=== PATIENT | male | born 1950 | race Caucasian/White ===

== ENCOUNTER 2023-04-26 18:23 | Emergency (ER) | payer MEDICARE ==
[~2023-04-26] VITALS: Ht 190.5 cm; Wt 81.6 kg
[2023-04-26 18:32] VITALS: BP_SYST 135; PULSE 121; RESP 22; TEMP 97; O2SAT 94
[2023-04-26] MEDS ORDERED: methylPREDNISolone SOD SUCC/PF 62.5 MG/ML VIAL IVP ONE (18:45)
[2023-04-26] MEDS ORDERED: IPRATROPIUM/ALBUTEROL SULFATE 3 ML AMPUL.NEB (DUONEB) INH ONE (18:45)
[2023-04-26] MEDS ORDERED: METOPROLOL TARTRATE 5 MG/5 ML VIAL IVP ONE (19:15)
[2023-04-26] MEDS ORDERED: METOPROLOL TARTRATE 25 MG TABLET PO ONE (19:15)
[2023-04-26 19:22] LABS: BASOPHILS # (AUTO) 0.1 K/uL (0.0-0.2); BASOPHILS % (AUTO) 0.6 % (0.0-2.0); EOSINOPHILS % (AUTO) 0.1 % (0.0-4.0); HEMATOCRIT 41.3 % (36-54); HEMOGLOBIN 13.7 g/dL (14.0-18.0); LYMPHOCYTES # (AUTO) 0.3 K/uL (1.0-5.5); LYMPHOCYTES % (AUTO) 2.9 % (20.5-51.5); MEAN CORPUSCULAR HEMOGLOBIN 32 pg (27-31); MEAN CORPUSCULAR HGB CONC 33 % (32-36); MEAN CORPUSCULAR VOLUME 96 fL (79.0-98.0); MONOCYTES # (AUTO) 0.7 K/uL (0.0-1.0); MONOCYTES % (AUTO) 5.8 % (1.7-9.3); NEUTROPHILS # (AUTO) 10.9 K/uL (1.8-7.7); NEUTROPHILS % (AUTO) 90.6 % (40.0-70.0); PLATELET COUNT (AUTO) 123 K/uL (130-430); RED BLOOD CELL COUNT(AUTO) 4.32 MIL/uL (4.2-6.2); RED CELL DISTRIBUTION WIDTH 13.2 % (9.0-15.0); WHITE BLOOD COUNT (AUTO) 12.1 K/uL (4.8-10.8)
[2023-04-26 19:36] LABS: ANION GAP 10 (5-15); CALCIUM 7.7 mg/dL (8.4-11.0); CARBON DIOXIDE 29 mmol/L (23-29); CHLORIDE 101 mmol/L (98-107); CREATININE 0.73 mg/dL (0.55-1.30); GLUCOSE 119 mg/dL (74-106); POTASSIUM 3.7 mmol/L (3.5-5.1); SODIUM SERUM 140 mmol/L (136-145); UREA NITROGEN, BLOOD 15 mg/dL (8-21)
[2023-04-26 19:43] LABS: ALANINE AMINOTRANSFERASE 25 U/L (12-78); ALBUMIN 3.9 g/dL (3.4-4.8); ASPARTATE AMINOTRANSFERASE 18 U/L (10-37); TOTAL BILIRUBIN 1.6 mg/dL (0.0-1.0); TOTAL PROTEIN, SERUM 6.8 g/dL (6.4-8.3)
[2023-04-26 19:54] LABS: INR 2.2 (0.80-1.20); PROTHROMBIN TIME 22.1 SECS (9.5-12.5)
[2023-04-26 19:56] LABS: BILIRUBIN,URINE NEGATIVE (NEGATIVE); BLOOD, URINE 1+ (NEGATIVE); COLOR,URINE YELLOW (YELLOW); GLUCOSE,URINE NEGATIVE (NEGATIVE); KETONES,URINE 2+ (NEGATIVE); LEUKOCYTE ESTERASE ,URINE NEGATIVE (NEGATIVE); NITRITE, URINE NEGATIVE (NEGATIVE); PH,URINE 5.5 (5.0-8.0); PROTEIN URINE 1+ (NEGATIVE); UROBILINOGEN,URINE 0.2 (0.2-1.0)
[2023-04-26 19:58] LABS: CLARITY/URINE SLIGHTLY CLOUDY (CLEAR)
[2023-04-26 20:09] LABS: BARBITURATE, URINE NEGATIVE (NEG <=200); BENZODIAZEPINE, URINE NEGATIVE (NEG <=150); CANNABINOID, URINE NEGATIVE (NEG <=50); COCAINE, URINE NEGATIVE (NEG <=150); METHAMPHETAMINES SCREEN,URINE NEGATIVE (NEG <=500); OPIATE, URINE NEGATIVE (NEG <=100); PHENCYCLIDINE SCREEN,URINE NEGATIVE (NEG <=25); URINE AMPHETAMINE NEGATIVE (NEG <=500); URINE METHADONE NEGATIVE (NEG <=200); URINE OXYCODONE SCREEN NEGATIVE (NEG <=100); URINE PROPOXYPHENE SCREEN NEGATIVE (NEG <=300)
[2023-04-26 20:10] LABS: UR TRICYCLIC ANTIDEPRESSANTS NEGATIVE (NEG <=300)
[2023-04-26] MEDS ORDERED: cefTRIAXone 1 GM IVPB PREMIX 50 ML IV ONE (20:15)
[2023-04-26 20:25] LABS: BACTERIA,URINE FEW /HPF (None Seen); WBC,URINE 0-3 /HPF (0-3)
[2023-04-26 20:36] LABS: ABG O2 SAT% ESTIMATE 92.5 % (94.0-100.0); BLOOD GAS HCO3 23.4 mmol/L (21.0-27.0); BLOOD GAS PCO2 34.5 mmHg (32.0-45.0); BLOOD GAS PH 7.449 (7.350-7.450); BLOOD GAS PO2 60.8 mmHg (75.0-100.0)
[2023-04-26] MEDS ORDERED: ALBMDI INH (21:19)
[2023-04-26] MEDS ORDERED: PRED20TA PO (21:20)
[2023-04-26 21:36] VITALS: BP_SYST 132; PULSE 102; RESP 18; TEMP 97.2; O2SAT 96
== END 2023-04-26 21:36 | disposition home or self-care (01) ==
LOC: SED 18:23
DX: J44.1 Chronic obstructive pulmonary disease with (acute) exacerbation (principal); I48.20 Chronic atrial fibrillation, unspecified; R41.82 Altered mental status, unspecified; I10 Essential (primary) hypertension; Z79.01 Long term (current) use of anticoagulants; Z79.899 Other long term (current) drug therapy
CPT/HCPCS: 36415; 36600; 70450-TC; 71045; 76376; 80053; 80307; 81000; 82140; 82803; 83605; 83880; 84484; 85025; 85610-TC; 85730-TC; 87040; 87086; 93005; 94640; 99285